=== PATIENT | female | born 1965 | race Caucasian/White ===

== ENCOUNTER 2018-02-08 10:30 | Day surgery (SDC) | payer OTHER ==
[2018-02-07 12:19] VITALS: BMI 37.4
[2018-02-08 12:50] LABS: #Basophils 0.1 thou/uL (0.0-0.2); #Eosinphils 0.1 thou/uL (0.0-0.7); #Lymphocytes 2.6 thou/uL (1.20-3.40); #Monocytes 0.6 thou/uL (0.11-0.59); #Neutrophils 3.3 thou/uL (1.40-6.50); %Basophils 1.3 % (0.0-1.0); %Eosinophils 1.4 % (0.0-10.0); %Lymphocytes 38.7 % (21.0-51.0); %Monocytes 8.3 % (0.0-10.0); %Neutrophils 50.2 % (42.0-75.0); Mean Corpuscular HGB CONC 33.5 g/dL (32.0-36.0); Mean Corpuscular Hemoglobin 30.7 pg (27.0-31.0); Mean Corpuscular Volume 91.5 fL (78.0-98.0); Mean Platelet Volume 7.7 fL (7.4-10.4); Platelet Count 236 thou/uL (130-400); RBC Distribution Width 10.9 % (11.5-14.5); Red Blood Cell (RBC) Count 4.57 mill/uL (4.20-5.40); White Blood Cell (WBC) Count 6.6 thou/uL (4.8-10.8)
[2018-02-08 13:13] LABS: Anion Gap 12 mmol/L (10-20); BUN (Urea Nitrogen) 12 mg/dL (9.8-20.1); Calc. Creatinine Clearance 145 mL/min (70-130); Calcium 9.2 mg/dL (7.8-10.44); Carbon Dioxide 23 mmol/L (22-29); Chloride 108 mmol/L (98-107); Estimated GFR-MDRD 84; Glucose 96 mg/dL (70-105); Potassium 4.3 mmol/L (3.5-5.1); Sodium 139 mmol/L (136-145)
[2018-02-08] MEDS ORDERED: Midazolam HCl 2 mg/2 ml Vial ONE (13:16)
[2018-02-08] MEDS ORDERED: Fentanyl 100 MCG/2 ML VIAL ONE (13:16)
[2018-02-08] MEDS ORDERED: CEFAZOLIN/Water 2 GM/20 ML SYRINGE ONE (13:35)
[2018-02-08] MEDS ORDERED: Bacitracin Zinc Ointment 30 gm TUBE ONE (13:38)
[2018-02-08] MEDS ORDERED: Bupivacaine PF 0.5% 30 ML VIAL ONE (13:38)
[2018-02-08] MEDS ORDERED: PROPOFOL 200 MG/20 ML VIAL ONE (13:40)
[2018-02-08] MEDS ORDERED: Ondansetron PF 4 MG/2 ML Vial ONE (13:40)
[2018-02-08] MEDS ORDERED: Dexamethasone 20 MG/5 ML VIAL ONE (13:40)
[2018-02-08] MEDS ORDERED: ePHEDrine/0.9% NaCl/PF SYRINGE 50 mg/10 ml ONE (13:40)
[2018-02-08] MEDS ORDERED: PHENYLEPHRINE-NS 100 MCG/ML 10 ML SYRINGE ONE (13:40)
--- NOTE | 2018-02-11 14:23 | OP ---
DATE OF PROCEDURE: 02/08/2018 PREOPERATIVE DIAGNOSIS: Right foot chronic plantar fascial syndrome. POSTOPERATIVE DIAGNOSIS: Right foot chronic plantar fascial syndrome. PROCEDURE: Excision of heel spur, right foot with partial plantar fascial release. ANESTHESIA: General. SURGEON: Jerrod Mi M.D. COMPLICATIONS: None. CONDITION: Good. ESTIMATED BLOOD LOSS: Minimal. DRAINS: None. TOURNIQUET: Per anesthesia. TECHNIQUE: Consent was obtained. The patient was taken to the operating room and placed in supine p osition. After adequate general anesthesia was achieved, the patient's right foot and ankle were pos itioned and prepped and draped in a sterile fashion. A tourniquet was placed in the supramalleolar a shawna. Foot and ankle was elevated, exsanguinated, tourniquet inflated prior to incision. Direct plan tar medial incision to the proximal plantar fascia was performed and was taken down to the subcutaneo us tissues, carefully exposing the abductor fascia and plantar ligament. The patient had a thickened fibrotic ligament at the level of the origin. The abductor fascia was partially released along with a full release of the internal fascia. This then allowed exposure to the plantar heel spur. The pl emily ligament was incised and debrided approximately 30-40%. This allowed access to the plantar ishmael l spur which was removed after exposure with osteotome and curet. After copious irrigation and hemos tasis obtained and the skin reapproximated with some 3-0 nylon. Sterile bulky dressing was applied a nd patient was taken to recovery in stable condition. Prognosis is good. Begin rehab protocol.
== END 2018-02-08 16:22 | disposition home or self-care (01) ==
LOC: SDC 10:30
PROVIDERS: ATTEND Orthopaedic Surgery
PROC: 0J8Q0ZZ Division of Right Foot Subcutaneous Tissue and Fascia, Open Approach (ICD-10-PCS; principal; 2018-02-08)
DX: M72.2 Plantar fascial fibromatosis (principal); M77.31 Calcaneal spur, right foot; E07.9 Disorder of thyroid, unspecified; Z79.899 Other long term (current) drug therapy
CPT/HCPCS: 36415; 80048; 85025; 93005; 93010; J1100; J2250; J2405; J2704; J3010; S0020